=== PATIENT | male | born 1945 | race Caucasian/White ===

== ENCOUNTER 2016-11-10 17:45 | Emergency (ER) | payer OTHER, MEDICARE ==
[~2016-11-10] VITALS: Ht 170.2 cm; Wt 76.2 kg
[2016-11-10 19:28] LABS: ABSOLUTE BASOPHIL COUNT 0 /CUMM (0.0-0.2); ABSOLUTE EOSINOPHIL COUNT 0.1 /CUMM (0.0-0.7); ABSOLUTE GRANULOCYTE CT 4.6 /CUMM (1.4-6.5); ABSOLUTE LYMPH COUNT 1.6 /CUMM (1.2-3.4); ABSOLUTE MONOCYTE COUNT 0.9 /CUMM (0.10-0.60); BASOPHIL % 0.1 % (0.0-2.0); EOSINOPHIL % 2.1 % (0-5); GRANULOCYTE % 64.1 % (42.2-75.2); HEMATOCRIT 38.1 % (42-52); MEAN CORPUSCULAR HGB 31.2 PG (27.0-31.0); MEAN CORPUSCULAR HGB CONC 33.8 G/DL (33.0-37.0); MEAN CORPUSCULAR VOLUME 92.2 FL (80.0-94.0); PLATELET COUNT 204 /CUMM (130-400); RED BLOOD CELL CT 4.13 /CUMM (4.70-6.10); WHITE BLOOD CELL COUNT 7.2 /CUMM (4.8-10.8)
[2016-11-10] MEDS ORDERED: QUETIAPINE FUMA25 M1 PO (19:47)
[2016-11-10] MEDS ORDERED: ALPRAZOLAM0.25 M1 PO (19:48)
[2016-11-10] MEDS ORDERED: ALPRAZOLAM0.5 M4 PO (19:49)
[2016-11-10] MEDS ORDERED: ESCITALOPRAM OX20 MG PO (19:49)
[2016-11-10] MEDS ORDERED: AMLODIPINE BESYL5 M1 PO (19:49)
[2016-11-10] MEDS ORDERED: PRAVASTATIN SOD20 M2 PO (19:49)
[2016-11-10] MEDS ORDERED: ASPIRIN EC81 M1 PO (19:50)
[2016-11-10] MEDS ORDERED: CLOPIDOGREL75 M1 PO (19:50)
[2016-11-10] MEDS ORDERED: METFORMIN HCL500 M4 PO (19:50)
[2016-11-10] MEDS ORDERED: TAMSULOSIN HCL0.4 M1 PO (19:50)
[2016-11-10] MEDS ORDERED: MULTI-DAY VITA1 EACH PO (19:51)
[2016-11-10] MEDS ORDERED: SEROQUEL50 M1 PO (20:12)
--- NOTE | 2016-11-10 21:49 | ED PSYCH CRISIS CONSULTATION ---
See Addendum Crisis Consult Basic Assessment Date of Consult: 11/10/16 Responsible Person/Accompanied By: Ex- (Cristel Taveras) Insurance Authorization: Insurance #1: Insurance name: SELF-PAY Phone number: Policy number: Group number: Authorization number: n/a ED Provider: Patient's ED Provider: SHAILESH WANG PA-C Primary Care Physician: Patient's PCP: PATIENT HAS NO PRIMARY CARE DR PCP's Phone Number: Current Psychiatrist: Dr. Gregory Vizcaino Chief Complaint: Psychiatric Related Complaint Patient's Quote: "I feel lost" Present Illness: Pt is a 71 year old male brought to the ED by his ex- (Cristel Taveras) for increased depression, anxiety and suicidal thoughts with a plan. Pt. reports that he has been in treatment f for depression for at least the last 10 years, but in the last month or so it has increased. Pt. also reports that he has been experiencing anxiety for the last few months which continues to increase even though his current psychiatrist, Dr. Gregory Vizcaino, has been prescribing him medication for this. Pt reports that Dr. Vizcaino first prescribed him Ativan which did not help, then increased the Ativan - which did not help - and then switched him to Xanax, 0.25mg/every four to six hours as needed. Pt reports that he took the Xanax every four hours and it still was not helping to alleviate the anxiety - or as pt calls it adrenalin. Pt reports that yesterday he saw his psychiatrist again, reporting that he was still very anxious and that Dr. Vizcaino increased the Xanax dosage to 0.5mg and added on 50mg of Seroquel (since Pt was also having difficulty sleeping). Pt reports that he still did not sleep well last night. He reports feeling "out of breath " and that he "can't stop the adrenalin". Pt. did appear to be trying to catch his breath while talking to this clinician oncology during evaluation. Pt. also reports that he has been "seriously thinking about suicide" for the past 5 days with a plan of either slitting his wrists, walking into the oceans or shooting himself. Pt reports that he does not own a gun. Pt. would like to be admitted and reports that he would probably kill himself if he were to be discharged. Pt denies any alcohol or substance use. Pt. denies any past suicide attempts. Patient's Address: [address] [place] [address] Other Phone Number: Who Do You Live With? Patient/Self Family/Informants Interviewed: ex- (Cristel Taveras) [phone] Allergies - Coded Allergies: No Known Allergies (11/10/16) Current Medications - Scheduled Medications Amlodipine Besylate 5 MG TABLET 1 TAB PO QHS BP #90 (Reported) Entered as Reported by MIGUEL A ACEVEDO on 11/10/161948 Aspirin (Ecotrin*) 81 MG TABLET.DR 1 TAB PO DAILY HEART/BLOOD (Reported) Entered as Reported by MIGUEL A ACEVEDO on 11/10/161949 Last Taken: 11/10/16 Clopidogrel Bisulfate (Clopidogrel) 75 MG TABLET 1 TAB PO DAILY BLOOD THINNER #90 (Reported) Entered as Reported by MIGUEL A ACEVEDO on 11/10/161949 Last Taken: 11/10/16 Escitalopram Oxalate 20 MG TABLET 1.5 TAB PO QPM MENTAL HEALTH #135 (Reported ) Entered as Reported by MIGUEL A ACEVEDO on 11/10/161948 Metformin HCl (Metformin HCl ER) 500 MG TAB.ER.24H 1 TAB PO QPM DM #90 ( Reported) Entered as Reported by MIGUEL A ACEVEDO on 11/10/161949 Multivitamin (Multi-Day Vitamins) 1 EACH TABLET 1 TAB PO DAILY SUPPLEMENT ( Reported) Entered as Reported by MIGUEL A ACEVEDO on 11/10/161950 Last Taken: 11/10/16 Pravastatin Sodium 20 MG TABLET 1 TAB PO QHS CHOLESTEROL #90 (Reported) Entered as Reported by MIGUEL A ACEVEDO on 11/10/161948 Quetiapine Fumarate 25 MG TABLET 1 TAB PO QPM MENTAL HEALTH #30 (Reported) Entered as Reported by MIGUEL A ACEVEDO on 11/10/161946 Quetiapine Fumarate (Seroquel) 50 MG TABLET 1 TAB PO QHS ANXIETY (Reported) Entered as Reported by ROMARIO ARNOLD on 11/10/162011 Last Taken: 11/09/16 Tamsulosin HCl 0.4 MG CAP.ER.24H 1 CAP PO BID PROSTATE #180 (Reported) Entered as Reported by MIGUEL A ACEVEDO on 11/10/161949 Last Taken: 11/10/16 Scheduled PRN Medications Alprazolam 0.25 MG TABLET 1 TAB PO Q4 PRN ANXIETY #40 (Reported) Entered as Reported by MIGUEL A ACEVEDO on 11/10/161947 Laboratory Results: Laboratory Tests 11/10/161956: Urinalysis LIGHT H, Urine Color YEL, Urine Clarity CLEAR, Urine pH 7.0, Ur Specific [place] 1.010, Urine Protein NEG, Urine Ketones NEG, Urine Nitrite NEG, Urine Bilirubin NEG, Urine Urobilinogen 1.0, Ur Leukocyte Esterase NEG, Ur Microscopic SEDIMENT EXAMINED, Urine RBC 1-3, Urine WBC RARE, Ur Epithelial Cells RARE, Urine Crystals 1+ CA OX H, Urine Bacteria RARE H, Urine Hemoglobin TRACE-LYSED H, Urine Glucose NEG 11/10/161936: Urine Opiates Screen < 100.00, Methadone Screen 46, Barbiturate Screen < 60, Ur Phencyclidine Scrn < 6.00, Amphetamines Screen < 100, U Benzodiazepines Scrn > 800 H, Urine Cocaine Screen < 50, Urine Cannabis Screen < 5.00 11/10/161917: Anion Gap 9, Estimated GFR > 60, BUN/Creatinine Ratio 20.0, Glucose 106 H, Calcium 9.0, Total Bilirubin 1.3, AST 17, ALT 34, Alkaline Phosphatase 61, Total Protein 6.6, Albumin 3.8, Globulin 2.8, Albumin/Globulin Ratio 1.4, CBC w Diff NO MAN DIFF REQ, RBC 4.13 L, MCV 92.2, MCH 31.2 H, RDW 14.0, MPV 8.0, Gran % 64.1, Lymphocytes % 21.8, Monocytes % 11.9 H, Eosinophils % 2.1, Basophils % 0.1, Absolute Granulocytes 4.6, Absolute Lymphocytes 1.6, Absolute Monocytes 0.9 H, Absolute Eosinophils 0.1, Absolute Basophils 0, PUBS MCHC 33.8 (ROMARIO LAU LCSW) Addendum Addendum Crisis Re-Assessment: Reviewed crisis assessment and ED documentation. Met with pt who spoke softly and made no eye contact. Pt rated his current anxiety a 10 out of 10 and stated his anxiety triggers his depression. The pt denies SI during this evaluation but stated knows his thoughts of suicide will return. The pt stated he is unsure if he can keep himself safe. The pt reports poor sleep over the past month. The pt denies HI, AH and VH. The pt stated "my mind is rolling and rolling, it cannot stop." The pt reported stressors of his house scheduled to be sold in November and his plans to move to [place] to be with family. Discussed plan is for hospitalization but there are currently no beds available at [facility]. Discussed Crisis is conducting a bed search, the pt stated he is in agreement with this plan. 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 Gregory Vizcaino Reason for Treatment Depression Dates of Treatment past 10 years Response to Treatment still depressed Diagnosis by History: Depression Substance Use/Abuse History Drug Use/Abuse Substances Used/Abused No Substance Abuse Treatment Substance Abuse Treatment Past Substance Abuse [place] No Comments: Pt. denies alcohol or substance use (JUDI SHIPMAN,ROMARIO) Current Mental Status Mental Status Orientation: Person, Place, Situation Affect: Anxious, Depressed Speech: WNL Neuro-vegetative: Anhedonia, Concentration Poor, Helpless, Sleep Disturbance Appearance Appearance- Dress/Hygiene: WNL Behaviors Thought Process: WNL Thought Content: WNL Memory: WNL Insight: Fair SI/HI Risk Assessment Past Suicidal Ideation/Attempts No Current Suicidal Ideation/Att Yes (SI with plan) Past Homicidal Ideation/Att: No Current Homicidal Ideation/Attempts No Degree of Intent: Plan, States Intent Danger To: Self Gravely Disabled: none Risk Factors: age (under 24/over 65), access to lethal means, chronic/serious med cond., high anxiety/distress, isolate/no social support, lives alone, male, limited support Lethality Ratin PTSD Checklist PTSD Done? 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 Stressors - minimal supports, upcoming move from home to another state. Medical - three cardiac stents. Current GAF: 24 Comments: current suicidal thoughts with plan and stated intent. (ROMARIO LAU LCSW) Departure Disposition Psych Medical Clearance Date: 11/10/16 Medically Cleared at: 2009 Time Started: 2009 Time Ended: 2054 Psychiatrist Consulted: Saul Lo MD Date Disposition Established: 11/10/16 Time Disposition Established: 2054 Plan for Disposition - Modality: H/O in ED to be re-evaluated by Crisis in AM Facility: [facility] Contact: n/a Telephone: n/a Rationale for Disposition: Pt. reports current suicidal thoughts with a plan and stated intent. Pt is at current risk of harm to self and needs admission. However there are no beds on [facility] and no beds in any other hospitals today. Pt will therefore be held over in ED until the AM for re-evaluation by Crisis. Additional Instructions: none Referrals PATIENT HAS NO PRIMARY CARE DR (PCP/Family) (ROMARIO LAU LCSW)
--- NOTE | 2016-11-11 01:05 | ED GENERAL ADULT ---
History of Present Illness General Chief Complaint: Psychiatric Related Complaint Stated Complaint: DEPRESSED,+SI Source: patient Exam Limitations: no limitations Vital Signs & Intake/Output Vital Signs & Intake/Output Vital Signs Date Time Temp Pulse Resp B/P B/P Pulse O2 O2 Flow FiO2 Mean Ox Delivery Rate 11/12 1110 78 127/58 11/12 0811 98.9 78 22 127/58 97 11/12 0555 97.5 60 18 139/65 96 Room Air 11/12 0411 98.6 54 18 132/67 98 Room Air 11/12 0130 98.2 49 16 125/62 96 Room Air 11/11 2303 98.2 84 16 142/76 05 2250 98.2 84 16 142/76 94 Room Air Allergies Coded Allergies: No Known Allergies (11/10/16) Triage Note: RECEIVED 71 YO MALE WITH HX OF SEVERE DEPRESSION AND ANXIETY, UNDER THE CARE OD DR YESSENIA CHOW. PT REPORTS SUICIDAL THOUGHTS AND IDEATION. PT HAS SEVERAL PLANS, OVERDOSE ON PILLS, DROWNING. PT HAS A LONG TIME HX OF DEPRESSION, BUT SEVERE ANXIETY STARTED 2 MONTHS AGO AFTER SALE OF HOUSE. Triage Nurses Notes Reviewed? yes HPI: 61-year-old male with a past medical history of coronary artery disease, status post placement of 3 cardiac stents, diabetes, depression presenting with suicidal ideation. Reports worsening depression and thoughts of wanting to end his life in the setting of his house being sold. States that he has multiple plans some of which include either cutting his wrists with a razor or overdosing on prescription pain medication. Denies any self injuries or ingestions to date. Denies EtOH or drug use. Denies any pain or trauma. (FELIPE TAMEZ,SHAILESH) Reconcile Medications Alprazolam 0.25 MG TABLET 1 TAB PO Q4 PRN ANXIETY (Reported) Amlodipine Besylate 5 MG TABLET 1 TAB PO QHS BP (Reported) Aspirin (Ecotrin*) 81 MG TABLET.DR 1 TAB PO DAILY HEART/BLOOD (Reported) Clopidogrel Bisulfate (Clopidogrel) 75 MG TABLET 1 TAB PO DAILY BLOOD THINNER (Reported) Escitalopram Oxalate 20 MG TABLET 1.5 TAB PO QPM MENTAL HEALTH (Reported) Metformin HCl (Metformin HCl ER) 500 MG TAB.ER.24H 1 TAB PO QPM DM (Reported) Multivitamin (Multi-Day Vitamins) 1 EACH TABLET 1 TAB PO DAILY SUPPLEMENT ( Reported) Pravastatin Sodium 20 MG TABLET 1 TAB PO QHS CHOLESTEROL (Reported) Quetiapine Fumarate 25 MG TABLET 1 TAB PO 1700 MENTAL HEALTH (Reported) Quetiapine Fumarate (Seroquel) 50 MG TABLET 1 TAB PO AT BEDTIME PSYCH ( Reported) Tamsulosin HCl 0.4 MG CAP.ER.24H 1 CAP PO BID PROSTATE (Reported) (BOBY SHARPE,MARYJANE) Past History Travel History Traveled to [place] past 21 day No Medical History Any Pertinent Medical History? 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 No (FELIPE TAMEZ,SHAILESH) Review of Systems Review of Systems Constitutional: Reports: no symptoms. Respiratory: Reports: no symptoms. Cardiovascular: Reports: no symptoms. GI: Reports: no symptoms. Genitourinary: Reports: no symptoms. Musculoskeletal: Reports: no symptoms. Skin: Reports: no symptoms. Neurological/Psychological: Reports: no symptoms. (FELIPE TAMEZ,SHAILESH) Physical Exam Physical Exam General Appearance: well developed/nourished, no apparent distress Head: atraumatic Ears, Nose, Throat: normal ENT inspection Neck: normal inspection Respiratory: normal breath sounds, lungs clear Cardiovascular: regular rate/rhythm Gastrointestinal: normal bowel sounds, soft, non-tender Neurologic/Psych: no motor/sensory deficits, awake, alert, oriented x 3, normal gait, special warfare operator II-XII nml as tested Core Measures ACS in differential dx? No CVA/TIA Diagnosis: No Severe Sepsis Present: No Septic Shock Present: No (FELIPE TAMEZ,SHAILESH) Progress Differential Diagnoses I considered the following diagnoses in my evaluation of the patient: [ Depression versus suicidal ideation versus organic etiology] Plan of Care: Orders Procedure Date/time Status Continuous Observation Monitor 11/12 0641 Active Labs and urine are unremarkable. Urine tox positive for benzos which patient is prescribed by his psychiatrist. Patient sitter at bedside. Patient seen and evaluated by oil well fishing tool operator. There are no Inpatient Psychiatry beds at this time, patient will be held in the ED overnight evaluated by psychiatry in the morning. (SHAILESH WANG PA-C) 7:15 AM PATIETN SIGNED OUT TO ME BY DR KEYS. PENDING CRISIS DISPO. 11/12/2016 12:21:32 PM To be transferred to [facility]. Dr. Boogie accepting. (MARYJANE LANDIS MD) Initial ED EKG: none (SHAILESH WANG PA-C) Comments: 11/11/2016 6:55:54 AM patient signed out to Dr. Patel at shift policy change clerk. (ROC SHARPE,ANABELL Arechiga) Hand-Off Endorsed To: PARTHA KEYS MD Endorsed Time: 1899 Pending: other (BED SEARCH) Comments: Patient has been seen and reevaluated by oil well fishing tool operator. This still recommend admission. Bed search is underway. (ADALGISA PATEL MD) Hand-Off Endorsed To: MARYJANE LANDIS MD (PARTHA KEYS MD) Differential Diagnoses I considered the following diagnoses in my evaluation of the patient: (MARYJANE LANDIS MD) Departure Departure Condition: Stable Clinical Impression Primary Impression: Suicidal ideation Departure Forms: Customer Survey General Discharge Information (SHAILESH WANG PA-C) Departure Time of Disposition: 1221 Disposition: OTHER [facility] (AC[facility]) PA/HAT BODY SORTER Co-Sign Statement Statement: ED Attending supervision documentation- [] I saw and evaluated the patient. I have also reviewed all the pertinent lab results and diagnostic results. I agree with the findings and the plan of care as documented in the PA's/HAT BODY SORTER's documentation. [X] I have reviewed the ED Record and agree with the PA's/HAT BODY SORTER's documentation. [] Additions or exceptions (if any) to the PAs/HAT BODY SORTER's note and plan are summarized below: [] (MARYJANE LANDIS MD) Critical Care Note Critical Care Note Critical Care Time: non-applicable (SHAILESH WANG PA-C) Endorsed Time: 1899 Pending: other (BED SEARCH) Comments: Patient has been seen and reevaluated by oil well fishing tool operator. This still recommend admission. Bed search is underway. (ADALGISA PATEL MD) Hand-Off Endorsed To: MARYJANE LANDIS MD (PARTHA KEYS MD) Differential Diagnoses I considered the following diagnoses in my evaluation of the patient: (MARYJANE LANDIS MD) Departure Departure Condition: Stable Clinical Impression Primary Impression: Suicidal ideation Departure Forms: Customer Survey General Discharge Information (SHAILESH WANG PA-C) Departure Time of Disposition: 1220 Disposition: [facility] ([facility]) (MARYJANE LANDIS MD) Critical Care Note Critical Care Note Critical Care Time: non-applicable (SHAILESH WANG PA-C) Critical Care Note Critical Care Time: non-applicable (SHAILESH WANG PA-C)
[2016-11-12 11:10] VITALS: BP 127/58
== END 2016-11-12 12:50 | disposition other institution (70) ==
LOC: ERH 17:45
PROVIDERS: Physician Assistant
DX: R45.851 Suicidal ideations (principal); E11.9 Type 2 diabetes mellitus without complications
CPT/HCPCS: 80307; 81001; G0463; J3490